=== PATIENT | male | born 1970 | race Caucasian/White ===

== ENCOUNTER 2016-11-18 06:50 | Day surgery (SDC) | payer OTHER ==
[~2016-11-18 06:50] MED LIST: CHONDR SULF 4%/HYALURONATE 3% 0.5 ML SYRINGE IO ONE; D5 1/2NS 500 ML IV SCH; EPINEPHRINE 0.5 MG in BALANCED SALT IRRIG SOLN NO.2 500 ML IO ONE; LIDOCAINE 4% (PRES FREE) 1 ML, BALANCED SALT IRRIG SOLN COMB2 3 ML, EPINEPHRINE 1.25 MG IO ONE; NEO/POLYMYX B SULF/DEXAMETH OP OINT 14 APPLIC/3.5 G TUBE OD ONE; PHENYLEPHRINE HCL 10% 100 GTTS/5 ML BOT SOLN.DROP OD PRN; PROPARACAINE HCL 0.5% 300 GTTS/BOT SOLN.DROP OD ONE
[2016-11-18] MEDS ORDERED: IV START KIT ONE (07:04)
[2016-11-18] MEDS ORDERED: SODIUM CHLORIDE 0.9% 500 ML ONE (07:05)
[2016-11-18] MEDS ORDERED: POVIDONE-IODINE 5% OPHTH SOLN 600 GTTS/BOT SOLN.DROP ONE (07:06)
[2016-11-18] MEDS: CYCLOPENTOLATE HCL 1% 40 GTTS/2 ML BOT SOLN.DROP OD SCH ×2 (07:24→07:30)
[2016-11-18] MEDS: FLURBIPROFEN SODIUM 0.03% 50 GTTS/2.5 ML BOT SOLN.DROP OD SCH ×2 (07:24→07:30)
[2016-11-18] MEDS: PHENYLEPHRINE 2.5% OPHTH 40 GTTS/2 ML BOT SOLN.DROP OD SCH ×2 (07:24→07:31)
[2016-11-18] MEDS ORDERED: MIDAZOLAM HCL 1 MG/ML 2ML VIAL ONE ×2 (07:36→08:21)
--- NOTE | 2016-11-19 09:24 | OP ---
WENDY ARANDA [id number] DATE OF PROCEDURE: 11/18/2016 PREOPERATIVE DIAGNOSIS: Cataract OD. POSTOPERATIVE DIAGNOSIS: Pseudophakia OD. PROCEDURE: PHACOEMULSIFICATION AND POSTERIOR CHAMBER INTRAOCULAR LENS OD. SURGEON: Dr. Lyle Hoff ANESTHESIA: MAC with topical. COMPLICATIONS: None. DESCRIPTION OF PROCEDURE: After informed consent was obtained, the patient was brought back to the operating room and laid in supine position. Cardiac monitors and IV access were obtained by nursing and the patient underwent IV sedation without complication. Once adequate sedation was in place, the patient was prepped and draped in the usual sterile fashion and a lid speculum was placed in the right eye. Attention was directed to the superior limbus at 12 o'clock where a side port was created using a 15-degree blade. Upon entering the anterior chamber, nonpreserved lidocaine was placed intracamerally, followed by reinflating the anterior chamber with viscoelastic. A clear corneal incision was then created at the limbus at 9 o'clock and a 2.4 mm Keratome blade was used to enter the anterior chamber. A curvilinear capsulorrhexis was initiated and completed with Utrata forceps. A balanced salt solution (BSS) was used to hydrodissect the cataract and the cataract was removed with the phacoemulsification unit and a phaco-chop technique. The remaining cortical remnants were removed with the irrigation and aspiration unit. The anterior chamber and capsular bag were reinflated with Viscoelastic. The intraocular lens and SN60WF, 21.5 diopter lens was removed from packaging and found to be without defect. This was placed into the injector and was injected into the capsular bag without difficulty. The posterior haptic was rotated into position using a Kuglen hook. The lens was noted to be well-centered in the bag. The remaining cortical remnants were removed with the irrigation and aspiration unit. The anterior chamber was reinflated with a balanced salt solution (BSS) and the wounds were inspected and found to be watertight. The lid speculum was removed. A shield was placed following placement of some Maxitrol ointment on the lids. The patient tolerated the procedure well and left the operating room in good condition. There were no complications.
== END 2016-11-18 09:10 | disposition home or self-care (01) ==
LOC: SDC 06:50
PROVIDERS: ATTEND Ophthalmology
PROC: 08RJ3JZ Replacement of Right Lens with Synthetic Substitute, Percutaneous Approach (ICD-10-PCS; principal; 2016-11-18)
DX: H26.9 Unspecified cataract (principal); I10 Essential (primary) hypertension; M77.9 Enthesopathy, unspecified
CPT/HCPCS: 66984; J2250 ×2; J7040; J0171 ×2; V2630